=== PATIENT | male | born 1975 | race Caucasian/White ===

== ENCOUNTER 2022-06-15 09:05 | Emergency (ER) | payer OTHER ==
[2022-06-15 09:27] VITALS: BP 130/79
[2022-06-15] MEDS ORDERED: LIDOCAINE 2%-EPI 1:100000 20 ML MDV SUBQ STA (09:48)
[2022-06-15] MEDS ORDERED: LIDOCAINE-EPINEPH-TETRACAINE 3 ML SYRINGE TOP STA (09:48)
[2022-06-15] MEDS ORDERED: oxyCODONE 5 MG TABLET PO STA (09:49)
[2022-06-15] MEDS ORDERED: LORazepam 1 MG TABLET PO STA (09:49)
--- NOTE | 2022-06-15 10:13 | ED Physician Documentation ---
PD HPI SKIN - Stated complaint Stated Complaint: GROIN PAIN/INGROWN HAIR - Chief complaint Chief Complaint: Wound - History obtained from History obtained from: Patient - History of Present Illness Location: Genitals Associated symptoms: No: Fever Similar symptoms before: Diagnosis (mrsa) - Additional information Additional information: 46yoM presents for evaluation of R groin swelling x3 days. Pulled hair 3 days ago and has noticed worsening pain/swelling. Has hx of MRSA infection before, this feels similar. Began to drain last night. Called PCP, who referred him to ED for initial treatment and will f/u in clinic. Denies fevers, chills, testicular pain, penile discharge, other complaints at this time. Review of Systems Ten Systems: 10 systems reviewed and negative Constitutional: denies: Fever, Chills, Myalgias, Fatigue, Weight Loss, Sweats, Reviewed and negative, Other Eyes: denies: Loss of vision, Decreased vision, Photophobia, Discharge, Irritation, Reviewed and negative, Other Ears: denies: Loss of hearing, Ear pain, Drainage/discharge, Tinnitus/ringing, Foreign body, Reviewed and negative, Other Nose: denies: Rhinorrhea / runny nose, Congestion, Epistaxis, Sinus pressure / pain, Foreign Body, Reviewed and negative, Other Throat: denies: Dental pain / toothache, Oral lesions / sores, Sore throat, Swollen tonsils, Swallowed foreign body, Reviewed and negative, Other Cardiac: denies: Chest pain / pressure, Palpitations, Pedal edema, Calf pain, Reviewed and negative, Other Respiratory: denies: Dyspnea, Cough, Hemoptysis, Wheezing, Reviewed and negative, Other GI: denies: Abdominal Pain, Abdominal Swelling, Nausea, Vomiting, Constipation, Diarrhea, Hematemesis, Bloody / black stool, Reviewed and negative, Other : denies: Dysuria, Frequency, Hesitancy, Unable to Void, Incontinent, Hematuria, Discharge, LMP, Vaginal bleeding, Irregular menses, Missed period, Now EGA, Control, Hysterectomy, Testicular pain, Testicular mass, Cloud Problem, Reviewed and negative, Other Skin: reports: Rash, Other (abscess) Musculoskeletal: denies: Neck pain, Back pain, Extremity pain, Joint pain, Extremity swelling, Joint swelling, Pain with weight bearing, Reviewed and negative, Other Neurologic: denies: Generalized weakness, Focal weakness, Numbness, Difficulty speaking, Near syncope, Syncope, Seizure, Confused, Altered mental status, Unresponsive, Headache, Head injury, LOC, Reviewed and negative, Other PD PAST MEDICAL HISTORY - Past Medical History Past Medical History: Yes Derm: Other (MRSA) - Present Medications Home Medications: Ambulatory Orders Medication Instructions Recorded Confirmed Doxycycline Hyclate 100 mg PO BID #14 tab.sr 06/15/22 HYDROcod/ACETAM 5/325 [[place] 5/325] 1 - 2 tab PO Q6H PRN #8 tablet 06/15/22 cephALEXin [Keflex] 500 mg PO Q6H #28 cap 06/15/22 - Allergies Allergies/Adverse Reactions: Allergies Allergy/AdvReac Type Severity Reaction Status Date / Time Penicillins Allergy Unknown Verified 06/15/22 09:28 PD ED PE NORMAL - Vitals Vital signs reviewed: Yes - General General: Alert and oriented X 3, No acute distress, Well developed/nourished, Other - HEENT HEENT: Atraumatic, PERRL, EOMI, Ears normal, Moist mucous membranes, Pharynx benign, Dentition benign, Other - Neck Neck: Supple, no meningeal sign, No bony TTP, No adenopathy, Thyroid normal, No JVD, No bruit, C-Spine cleared by NEXUS criteria, Other - Cardiac Cardiac: RRR, No murmur, No gallop, No rub, Strong equal pulses, Other - Respiratory Respiratory: No respiratory distress, Clear bilaterally, Other - Abdomen Abdomen: Normal bowel sounds, Soft, Non tender, Non distended, No organomegaly, Other - 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, Other (Francesca-scrotal induration) - Derm Derm: Warm and dry, Other (4x4cm abscess R inguinal crease) - Extremities Extremities: No deformity, No tenderness to palpate, Normal ROM s pain, No edema, No calf tenderness / cord, Other - Neuro Neuro: Alert and oriented X 3, 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, No motor deficit, No sensory deficit, Normal speech, Other - Psych Psych: Normal mood, Normal affect, Other PD ED PE EXPANDED - Derm SKin visual: 1 - abscess (4x4cm) Results - Vitals Vitals: Vital Signs - 24 hr 06/15/22 09:24 Temperature 36.4 C L Heart Rate 91 Respiratory 16 Rate Blood Pressure 130/79 O2 Saturation 97 Oxygen O2 Source Room air Procedures - Abscess I&D (location) Preparation: Confirmed with ultrasound, Lidocaine 1%, With epi Incision: Incised with scalpel, Purulent drainage, Loculations broken, Irrigated, Packed Other: Pt tolerated well, Dressing applied, Other PD MEDICAL DECISION MAKING - ED course Complexity details: reviewed old records ED course: Hx MRSA. Groin abscess. Incised and drained per procedure note with less than expected drainage of material. Packed with gauze. Will dual cover with abx given hx of MRSA. Patient states he has ride home after procedure. Wound care instructions provided and extra gauze and bandages sent with patient upon discharge. Patient states he will call his PCP for follow up Departure - Departure Disposition: 01 Home, Self Care Clinical Impression: Abscess Instructions: ED Abscess IandD Prescriptions: Doxycycline Hyclate 100 mg PO BID #14 tab.sr cephALEXin [Keflex] 500 mg PO Q6H #28 cap HYDROcod/ACETAM 5/325 [[place] 5/325] 1 - 2 tab PO Q6H PRN #8 tablet PRN Reason: Pain Discharge Date/Time: 06/15/22 12:25
== END 2022-06-15 12:25 | disposition home or self-care (01) ==
LOC: ED 09:05
DX: L02.214 Cutaneous abscess of groin (principal)
CPT/HCPCS: 10060; 99283; A9270; J8499

== ENCOUNTER 2022-09-16 09:07 | Emergency (ER) | payer OTHER ==
[2022-09-16 09:14] VITALS: BP 131/84
--- NOTE | 2022-09-16 09:29 | ED Physician Documentation ---
PD HPI HEENT - Stated complaint Stated Complaint: NOSE INFECTION - Chief complaint Chief Complaint: Wound - History obtained from History obtained from: Patient - History of Present Illness Timing - onset: How many days ago (2-3) Timing - duration: Days (2-3) Timing - details: Abrupt onset (came on quickly over just 1-2 days.), Still present Location: Nose (left nare rim with focal swelling, redness, pain. Had some drainage from area this morning.) Associated symptoms: Facial swelling (left nose tip, nare rim, and toward left medial cheek.). No: Fever, Congestion, Headache Similar symptoms before: Diagnosis (has had nasal MRSA abscess, as well as other staph infections on body. Has had to have I&D couple times.) Recently seen: Not recently seen Review of Systems Constitutional: reports: Myalgias. denies: Fever, Chills Ears: denies: Ear pain Nose: reports: Rhinorrhea / runny nose (from tip of nare). denies: Congestion Throat: reports: Dental pain / toothache (left upper tooth with caries.). denies: Sore throat Cardiac: denies: Chest pain / pressure Respiratory: denies: Dyspnea Skin: denies: Rash PD PAST MEDICAL HISTORY - Past Medical History Past Medical History: Yes Cardiovascular: None Respiratory: Asthma Neuro: None Endocrine/Autoimmune: None GI: None : None HEENT: None Psych: None Musculoskeletal: Chronic back pain Derm: Other - Past Surgical History Past Surgical History: No - Present Medications Home Medications: Ambulatory Orders Medication Instructions Recorded Confirmed Albuterol Sulf [Ventolin Hfa 2 puffs INH Q4HR PRN 09/16/22 09/16/22 Inhaler] Chlorhexidine Gluconate [Hibiclens] 15 ml TP DAILY 30 Days #236 ml 09/16/22 HYDROcod/ACETAM 5/325 [[place] 5/325] 1 ea PO Q6H PRN #10 tablet 09/16/22 Mupirocin 2% Oint [Bactroban 2% 1 applic TOP TID 30 Days #15 gm 09/16/22 Oint] Sulfamethox/Trimeth 800/160 1 each PO BID #14 tablet 09/16/22 [Bactrim Ds 800/160] - Allergies Allergies/Adverse Reactions: Allergies Allergy/AdvReac Type Severity Reaction Status Date / Time Penicillins Allergy Unknown Verified 09/16/22 09:14 - Social History Does the pt smoke?: Yes Smoking Status: Current every day smoker Does the pt drink ETOH?: No Does the pt have substance abuse?: No PD ED PE NORMAL - Vitals Vital signs reviewed: Yes - General General: Alert and oriented X 3, No acute distress, Well developed/nourished - HEENT HEENT: Ears normal, Moist mucous membranes, Pharynx benign, Other (nose tip with redness and tender. Left nare just inside rim with focal swelling 2-3 mm without fluctuance. Some purulence present in area. No septal swelling. Tender with mild redness to left medial cheek. ) - Neck Neck: Supple, no meningeal sign, No adenopathy - Cardiac Cardiac: RRR, No murmur - Respiratory Respiratory: Clear bilaterally Results - Vitals Vitals: Vital Signs - 24 hr 09/16/22 09:11 Temperature 36 C L Heart Rate 98 Respiratory 14 Rate Blood Pressure 131/84 H O2 Saturation 97 Oxygen O2 Source Room air PD MEDICAL DECISION MAKING - ED course Complexity details: considered differential (findings c/w MRSA and will treat as such. To add hibiclens and mupirocin to reduce chances of further recurrences. ), d/w patient Departure - Departure Disposition: 01 Home, Self Care Clinical Impression: Staphylococcus infection of nose Condition: Stable Record reviewed to determine appropriate education?: Yes Instructions: ED Staph Infec Abx Tx Only Prescriptions: Sulfamethox/Trimeth 800/160 [Bactrim Ds 800/160] 1 each PO BID #14 tablet Mupirocin 2% Oint [Bactroban 2% Oint] 1 applic TOP TID 30 Days #15 gm Chlorhexidine Gluconate [Hibiclens] 15 ml TP DAILY 30 Days #236 ml HYDROcod/ACETAM 5/325 [[place] 5/325] 1 ea PO Q6H PRN #10 tablet PRN Reason: Pain Comments: Cleanse the area of the infection with soap and water and you can even use saline nasal spray to cleanse up in the nasal passage several times daily. Apply mupirocin topical antibiotic to the infected area 3 times daily for the next 5 to 7 days. Bactrim antibiotic twice daily for the next week. Continue with your ibuprofen. Add Tylenol every 4-6 hours if needed for pain or hydrocodone if needed for worse pain. I would anticipate this improving over the next several days and be resolved by 3 to 5 days. Recheck if not improving well. Once better, continue with the mupirocin antibiotic ointment very lightly in the nasal passage once or twice daily for the next month and also use the chlorhexidine body wash daily over the next month. This will try to reduce the amount of staph germs present. When washing in the shower pay attention to cleaning around the nailbeds and under the nails as well. I transmitted your prescriptions to [facility] in [place]. I am prescribing a short course of narcotic pain medication for you. These are potentially dangerous and addictive medications that should be used carefully. These medications may constipate you. Take an whxw-vrl-stydvue stool softener such as docusate twice daily with plenty of water while taking these medications. If you go 24 hours without a bowel movement, take gyou-bcv-sfvjmro MiraLAX, per package instructions. Do not drink or drive while taking these medications. If you received narcotic or sedating medications while in the emergency department do not drive for 24 hours. Store this medication in a safe, secure place and out of reach of children. It is a violation of federal law to give or sell this medication to another person or to use in a manner other than prescribed. The ED will not refill narcotic prescriptions, including prescriptions lost or stolen. You can dispose of unwanted medications at the [facility]'s office or at several pharmacies such as [facility]. Discharge Date/Time: 09/16/22 10:05
[2022-09-16] MEDS ORDERED: ACETAMINOPHEN 325 MG TABLET PO STA (09:48)
[2022-09-16] MEDS ORDERED: SULFAMETH/TRIMETH DS 800/160 MG TABLET PO STA (09:48)
[2022-09-16] MEDS ORDERED: MUPIROCIN 2% OINT 1 GM NAS STA (09:48)
== END 2022-09-16 10:05 | disposition home or self-care (01) ==
LOC: ED 09:07
DX: J34.89 Other specified disorders of nose and nasal sinuses (principal); B95.8 Unspecified staphylococcus as the cause of diseases classified elsewhere; F17.200 Nicotine dependence, unspecified, uncomplicated
CPT/HCPCS: 99282; 99284; A9270

== ENCOUNTER 2022-10-19 12:53 | Emergency (ER) | payer OTHER ==
[2022-10-19 13:04] VITALS: BP 110/60
== END 2022-10-19 17:07 | disposition left against medical advice (07) ==
LOC: ED 12:53
DX: Z53.21 Procedure and treatment not carried out due to patient leaving prior to being seen by health care provider (principal)

== ENCOUNTER 2022-10-21 00:04 | Emergency (ER) | payer OTHER ==
[2022-10-21 00:10] VITALS: BP 123/50
[2022-10-21] MEDS ORDERED: LIDOCAINE-EPINEPH-TETRACAINE 3 ML SYRINGE TOP STA (00:18)
[2022-10-21] MEDS ORDERED: LIDOCAINE 1%-EPI 1:100000 20 ML MDV SUBQ STA (00:23)
--- NOTE | 2022-10-21 00:38 | ED Physician Documentation ---
History of Present Illness - Stated complaint Stated Complaint: MALE - Chief complaint Chief Complaint: General - History obtained from History obtained from: Patient - Additonal information Additional information: Patient is a 47-year-old male presenting for evaluation of right groin swelling and tenderness for 4 days. He report scratching at the area several days ago and since then has had increased swelling and discomfort. He has a history of MRSA infections including recurrent abscesses and in this area which this feels similar to.He denies fever, chest pain, difficulty breathing, abdominal pain, difficulty urination, testicular pain, penile discharge. Review of Systems Constitutional: denies: Fever Cardiac: denies: Chest pain / pressure Respiratory: denies: Dyspnea GI: denies: Abdominal Pain, Vomiting : denies: Dysuria, Discharge Musculoskeletal: denies: Back pain Neurologic: denies: Headache PD PAST MEDICAL HISTORY - Past Medical History Cardiovascular: None Respiratory: Asthma Neuro: None Endocrine/Autoimmune: None GI: None : None HEENT: None Psych: None Musculoskeletal: Chronic back pain Derm: Other - Past Surgical History Past Surgical History: No - Present Medications Home Medications: Ambulatory Orders Medication Instructions Recorded Confirmed Albuterol Sulf [Ventolin Hfa 2 puffs INH Q4HR PRN 09/16/22 09/16/22 Inhaler] Chlorhexidine Gluconate [Hibiclens] 15 ml TP DAILY 30 Days #236 ml 09/16/22 HYDROcod/ACETAM 5/325 [[place] 5/325] 1 ea PO Q6H PRN #10 tablet 09/16/22 Mupirocin 2% Oint [Bactroban 2% 1 applic TOP TID 30 Days #15 gm 09/16/22 Oint] Sulfamethox/Trimeth 800/160 1 each PO BID #14 tablet 09/16/22 [Bactrim Ds 800/160] Oxycodone HCl/Acetaminophen 1 each PO Q6H PRN #8 tablet 10/21/22 [Percocet 5-325 mg Tablet] Sulfamethox/Trimeth 800/160 1 each PO BID #14 tablet 10/21/22 [Bactrim Ds 800/160] cephALEXin [Keflex] 500 mg PO Q6H #28 cap 10/21/22 - Allergies Allergies/Adverse Reactions: Allergies Allergy/AdvReac Type Severity Reaction Status Date / Time Penicillins Allergy Unknown Verified 10/21/22 00:08 - Social History Does the pt smoke?: Yes Smoking Status: Current every day smoker Does the pt drink ETOH?: No Does the pt have substance abuse?: No PD ED PE NORMAL - General General: Alert and oriented X 3, No acute distress, Well developed/nourished - HEENT HEENT: Atraumatic, Moist mucous membranes - Neck Neck: Supple, no meningeal sign - Cardiac Cardiac: RRR, Strong equal pulses - Respiratory Respiratory: No respiratory distress, Clear bilaterally - Abdomen Abdomen: Soft, Non tender, Non distended - 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), Other (2 x 4 cm abscess in the right inguinal crease; No scrotalSwelling or erythema, no testicular tenderness) - Derm Derm: Warm and dry - Extremities Extremities: No edema - Neuro Neuro: Normal speech Results - Vitals Vitals: Vital Signs - 24 hr 10/21/22 00:08 Temperature 36.5 C Heart Rate 88 Respiratory 16 Rate Blood Pressure 123/50 L O2 Saturation 98 Oxygen O2 Source Room air Procedures - Abscess I&D (location) Right groin Preparation: Chlorhexadine, Lidocaine 1%, With epi Incision: Incised with scalpel, Purulent drainage, Loculations broken Other: Pt tolerated well, Dressing applied, Antibiotic prescribed PD MEDICAL DECISION MAKING - ED course ED course: Patient with abscess to right groin With incision and drainage. There is surrounding erythema suggestive of cellulitis so patient was also started on antibiotics.He was counseled on wound care as well as concerning symptoms to return for. He does not appear septic. There is no scrotal involvement. Departure - Departure Disposition: 01 Home, Self Care Clinical Impression: Abscess of groin, right Condition: Stable Instructions: ED Abscess IandD Prescriptions: Sulfamethox/Trimeth 800/160 [Bactrim Ds 800/160] 1 each PO BID #14 tablet cephALEXin [Keflex] 500 mg PO Q6H #28 cap Oxycodone HCl/Acetaminophen [Percocet 5-325 mg Tablet] 1 each PO Q6H PRN #8 tablet PRN Reason: pain Comments: The abscess in your right groin was incised and Pus was drained from it. I am going to start you on antibiotics as there is some surrounding redness Indicating a skin infection.Please continue to use heat or Warm baths to help continue to allow the abscess to drain.If you have any worsening symptoms please return to the ER follow-up with your primary care doctor. I sent your prescriptions to [facility] in [place]. I am prescribing a short course of narcotic pain medication for you. These are potentially dangerous and addictive medications that should be used carefully. These medications may constipate you. Take an chka-eca-gmhqxvq stool softener (docusate) twice daily with plenty of water while taking these medications. If you go 24 hours without a bowel movement, take kjxn-imb-gbbymdm miralax, per package instructions. Do not drink or drive while taking these medications. If you received narcotic or sedating medications while in the emergency department, do not drive for 24 hours. Store this medication in a safe, secure place and out of reach of children. It is a violation of federal law to give or sell this medication to another person or to use in a manner other than prescribed. The ED will not refill narcotic prescriptions, including prescriptions lost or stolen. To dispose of unwanted medications: 1. [facility] at [address] in [place] has a medication drop box. They accept prescription medications (in pill form) Wednesday through Wednesday 9:00 a.m. to 5:00 p.m. 2. The [facility] accepts prescription medications (in pill form only) for disposal year round. Call for more information. 3. Contact the [facility] for the next [facility] sponsored prescription drug collection event. , [phone], or [phone]; Note that many narcotic pain relievers also contain Tylenol/acetaminophen. Please ensure that your total dose of acetaminophen from all sources does not exceed 3 g (3000 mg) per day. Discharge Date/Time: 10/21/22 01:28
[2022-10-21] MEDS ORDERED: oxyCODONE/ACET 5/325 Prepack 4 PO STA (01:08)
[2022-10-21] MEDS ORDERED: cephALEXin 250 MG CAPSULE PO STA (01:09)
[2022-10-21] MEDS ORDERED: SULFAMETH/TRIMETH DS 800/160 MG TABLET PO STA (01:09)
== END 2022-10-21 01:28 | disposition home or self-care (01) ==
LOC: ED 00:04
DX: L02.214 Cutaneous abscess of groin (principal); Z86.14 Personal history of Methicillin resistant Staphylococcus aureus infection; J45.909 Unspecified asthma, uncomplicated; Z79.899 Other long term (current) drug therapy; F17.200 Nicotine dependence, unspecified, uncomplicated
CPT/HCPCS: 10060; 99282; A9270

== ENCOUNTER 2023-09-10 14:20 | Emergency (ER) | payer OTHER ==
[2023-09-10 14:34] VITALS: BP 137/79; O2SAT 97
--- NOTE | 2023-09-10 14:36 | ED Physician Documentation ---
PD HPI UPPER EXT INJURY - Stated complaint Stated Complaint: LT POINTER FINGER INJ - Chief complaint Chief Complaint: Trauma Ext - History obtained from History obtained from: Patient - Additonal information Additional information: Right-handed gentleman was working on [place] at home and hit his left index finger with a hammer and has severe pain at the tip with a laceration. No other injuries. He is up-to-date on tetanus. PD PAST MEDICAL HISTORY - Past Medical History Cardiovascular: None Respiratory: Asthma Neuro: None Endocrine/Autoimmune: None GI: None : None HEENT: None Psych: None Musculoskeletal: Chronic back pain Derm: Other - Past Surgical History Past Surgical History: No - Present Medications Home Medications: Ambulatory Orders Medication Instructions Recorded Confirmed Albuterol Sulf [Ventolin Hfa 2 puffs INH Q4HR PRN 09/16/22 09/16/22 Inhaler] Chlorhexidine Gluconate [Hibiclens] 15 ml TP DAILY 30 Days #236 ml 09/16/22 HYDROcod/ACETAM 5/325 [[place] 5/325] 1 ea PO Q6H PRN #10 tablet 09/16/22 Mupirocin 2% Oint [Bactroban 2% 1 applic TOP TID 30 Days #15 gm 09/16/22 Oint] Sulfamethox/Trimeth 800/160 1 each PO BID #14 tablet 09/16/22 [Bactrim Ds 800/160] Oxycodone HCl/Acetaminophen 1 each PO Q6H PRN #8 tablet 10/21/22 [Percocet 5-325 mg Tablet] Sulfamethox/Trimeth 800/160 1 each PO BID #14 tablet 10/21/22 [Bactrim Ds 800/160] cephALEXin [Keflex] 500 mg PO Q6H #28 cap 10/21/22 HYDROcod/ACETAM 5/325 [[place] 5/325] 1 - 2 tab PO Q6H PRN #15 tablet 09/10/23 - Allergies Allergies/Adverse Reactions: Allergies Allergy/AdvReac Type Severity Reaction Status Date / Time Penicillins Allergy Unknown Verified 10/21/22 00:08 - Social History Does the pt smoke?: Yes Smoking Status: Current every day smoker Does the pt drink ETOH?: No Does the pt have substance abuse?: No PD ED PE NORMAL - Vitals Vital signs reviewed: Yes - General General: Alert and oriented X 3, Other (in pain) - Extremities Extremities: Other (The left pointer finger is tender at the tip. No nail injury or subungual hematoma. 1 cm laceration on the pulp. No distal neurovascular compromise.) - Neuro Neuro: Alert and oriented X 3, Normal speech Results - Vitals Vitals: Vital Signs - 24 hr 09/10/23 14:25 Temperature 36.6 C Heart Rate 68 Respiratory 22 Rate Blood Pressure 137/79 H O2 Saturation 97 Oxygen O2 Source Room air - Rads (name of study) Three-view x-ray left second finger is negative Relevant Findings:: Final report received, EMP independent interpretation of test Procedures - Laceration (location) Left second finger Length in cm: 1 Wound type: Curved, Into subcut fat Neurovascular status: Sensory intact, Motor intact Tendon involvement: Tendon intact Anesthesia: Lidocaine 1% (Digital block) Wound preparation: Hibiclens, Irrigated copiously NS Skin layer closure: Nylon, Interrupted, Size #-0 - enter number (5-0), Sutures - enter # (4) Other: Patient tolerated well, No complications, Neurovascular intact, Tetanus UTD Departure - Departure Disposition: 01 Home, Self Care Clinical Impression: Finger laceration Qualifiers: Encounter type: initial encounter Finger: index finger Damage to nail status: without damage Foreign body presence: without foreign body Laterality: left Qualified Code(s): S61.211A - Laceration without foreign body of left index finger without damage to nail, initial encounter Crushed finger Qualifiers: Encounter type: initial encounter Qualified Code(s): S67.10XA - Crushing injury of unspecified finger(s), initial encounter Condition: Good Record reviewed to determine appropriate education?: Yes Instructions: ED Laceration Hand Prescriptions: HYDROcod/ACETAM 5/325 [[place] 5/325] 1 - 2 tab PO Q6H PRN #15 tablet PRN Reason: Pain Comments: Come back for any signs of infection which would include: Redness, swelling, drainage, increased pain, or fevers. You can wash it soap and water. Keep it covered and moist with bacitracin ointment which is available over the counter; avoid neosporin. Follow-up with your physician in 14 days for suture removal. I sent your prescription electronically to [facility] in [place] I am prescribing a short course of narcotic pain medication for you. These are potentially dangerous and addictive medications that should be used carefully. These medications may constipate you. Take an oafb-ppn-uqoyekn stool softener (docusate) twice daily with plenty of water while taking these medications. If you go 24 hours without a bowel movement, take enff-cgw-wqlvcgj miralax, per package instructions. Do not drink or drive while taking these medications. If you received narcotic or sedating medications while in the emergency department, do not drive for 24 hours. Store this medication in a safe, secure place and out of reach of children. It is a violation of federal law to give or sell this medication to another person or to use in a manner other than prescribed. The ED will not refill narcotic prescriptions, including prescriptions lost or stolen. To dispose of unwanted medications: 1. [facility] provides a drop box for medication in pill form only (no liquids) 8:00 am to 4:30 p.m. Wednesday-Wednesday in the lobby of the [facility], [address] [place] [address]. Empty pills into ziplock bag before disposal. Call [phone] for information. 2.[employer] is a free service available to all [facility] residents. Go to [email or web address]://[email or web address]/ Note that many narcotic pain relievers also contain Tylenol/acetaminophen. Plea se ensure that your total dose of acetaminophen from all sources does not exceed 3 g (3000 mg) per day. Forms: PCP List
--- NOTE | 2023-09-10 14:55 | XRAY Report ---
PROCEDURE: Finger(s) LT INDICATIONS: Left second finger injury TECHNIQUE: AP hand, 2 views of the second finger(s) acquired. COMPARISON: None. FINDINGS: Bones: No fractures or dislocations. No suspicious bony lesions. Soft tissues: No suspicious soft tissue calcifications or masses. IMPRESSION: No acute bony abnormality. Reviewed by: Karl Todd MD on 09/10/2023 2:54 PM PDT Approved by: Karl Todd MD on 09/10/2023 2:54 PM PDT Station ID: [id number]
== END 2023-09-10 15:07 | disposition home or self-care (01) ==
LOC: ED 14:20
DX: S67.191A Crushing injury of left index finger, initial encounter (principal); S61.211A Laceration without foreign body of left index finger without damage to nail, initial encounter; W20.8XXA Other cause of strike by thrown, projected or falling object, initial encounter; Y93.H3 Activity, building and construction; Y92.009 Unspecified place in unspecified non-institutional (private) residence as the place of occurrence of the external cause; F17.200 Nicotine dependence, unspecified, uncomplicated
CPT/HCPCS: 12001; 99283; 99284

== ENCOUNTER 2023-12-07 14:56 | Emergency (ER) | payer OTHER ==
[2023-12-07 15:10] VITALS: BP 140/90; O2SAT 99
--- NOTE | 2023-12-07 16:06 | ED Physician Documentation ---
PD MARTINEZ HEENT - Stated complaint Stated Complaint: LOCKED JAW - Chief complaint Chief Complaint: Heent - Additional information Additional information: 48-year-old gentleman here with jaw pain. He says he is up-to-date with all of his vaccines. Patient reports over the past couple days he feels like he is having what he describes as charley horses inferior to his chin. He said he was able to massage out the charley horses but now he feels like the pain is to both jaw joints. He has no mastoiditis no fevers or chills he has overall poor dentition and has an appoint with his dentist for follow-up tomorrow. He has mild jaw trismus and is able to open his jaw about an inch and says normally he is able to open his mouth much more than this. No facial swelling no fevers or chills denies this ever happening before denies any history of jaw problems or jaw surger\ PD PAST MEDICAL HISTORY - Past Medical History Cardiovascular: None Respiratory: Asthma Neuro: None Endocrine/Autoimmune: None GI: None : None HEENT: None Psych: None Musculoskeletal: Chronic back pain Derm: Other - Past Surgical History Past Surgical History: No - Present Medications Home Medications: Ambulatory Orders Medication Instructions Recorded Confirmed Albuterol Sulf [Ventolin Hfa 2 puffs INH Q4HR PRN 09/16/22 09/16/22 Inhaler] Chlorhexidine Gluconate [Hibiclens] 15 ml TP DAILY 30 Days #236 ml 09/16/22 HYDROcod/ACETAM 5/325 [[place] 5/325] 1 ea PO Q6H PRN #10 tablet 09/16/22 Mupirocin 2% Oint [Bactroban 2% 1 applic TOP TID 30 Days #15 gm 09/16/22 Oint] Sulfamethox/Trimeth 800/160 1 each PO BID #14 tablet 09/16/22 [Bactrim Ds 800/160] Oxycodone HCl/Acetaminophen 1 each PO Q6H PRN #8 tablet 10/21/22 [Percocet 5-325 mg Tablet] Sulfamethox/Trimeth 800/160 1 each PO BID #14 tablet 10/21/22 [Bactrim Ds 800/160] cephALEXin [Keflex] 500 mg PO Q6H #28 cap 10/21/22 HYDROcod/ACETAM 5/325 [[place] 5/325] 1 - 2 tab PO Q6H PRN #15 tablet 09/10/23 - Allergies Allergies/Adverse Reactions: Allergies Allergy/AdvReac Type Severity Reaction Status Date / Time Penicillins Allergy Unknown Verified 12/07/23 15:01 - Social History Does the pt smoke?: Yes Smoking Status: Current every day smoker Does the pt drink ETOH?: No Does the pt have substance abuse?: No PD ED PE NORMAL - Vitals Vital signs reviewed: Yes - General General: Alert and oriented X 3 - HEENT HEENT: Other (overall poor dentition, he does have jaw trismus, no facial swelling, no mastoiditis, no periapical abscess.) - Neck Neck: Supple, no meningeal sign - Cardiac Cardiac: RRR - Derm Derm: Normal color - Neuro Neuro: Alert and oriented X 3 Results - Vitals Vitals: Vital Signs - 24 hr 12/07/23 15:01 Temperature 36.8 C Heart Rate 80 Respiratory 18 Rate Blood Pressure 140/90 H O2 Saturation 99 Oxygen O2 Source Room air PD Medical Decision Making - ED course ED course: 48-year-old male here for atraumatic jaw pain. He has no mastoiditis no signs or symptoms of infection he said no fevers or chills at home no facial swelling. Because patient has an appoint with his dentist tomorrow I will hold off on ordering any imaging as he does not appear to have any sort of mandibular dislocation and I do not see any obvious signs of an abscess. Patient was originally wanted to be started on antibiotics but I do not see any periapical abscess he has no acute dental pain no facial swelling that I do not believe starting on antibiotics is warranted at this time. Patient was told to follow- up with his dentist tomorrow for further evaluation. He was given strict return precautions he was offered Tylenol and Toradol but he ultimately declined and said that he felt safe for discharge at this time and was going to follow-up with his dentist for further evaluation tomorrow. Departure - Departure Disposition: Home, Self Care Clinical Impression: Jaw pain Condition: Good Instructions: ED TMJ Syndrome Comments: Thank you for trusting us with your care as we discussed I strongly urged you to do it every cannot miss your appointment with your dentist tomorrow for further evaluation of this jaw pain. Because I do not see any obvious abscesses or infection I do not believe any imaging or antibiotics is warranted at this time. Please continue to alternate between Tylenol and ibuprofen for pain and discomfort and come back to the emergency department if you are starting to experience any significant facial swelling, fevers, chills, body aches. Forms: PCP List Discharge Date/Time: 12/07/23 16:56
[2023-12-07] MEDS: ACETAMINOPHEN 325 MG TABLET PO STA (16:44)
[2023-12-07] MEDS: KETOROLAC 15 MG/ML VIAL IM STA (16:44)
== END 2023-12-07 16:56 | disposition home or self-care (01) ==
LOC: ED 14:56
DX: R68.84 Jaw pain (principal); F17.200 Nicotine dependence, unspecified, uncomplicated
CPT/HCPCS: 96372; 99283; A9270